=== PATIENT | female | born 1995 | race Caucasian/White ===

== ENCOUNTER → 2018-08-09 13:42 | Outpatient (CLI) | payer OTHER, SELFPAY ==
--- NOTE | 2018-08-09 13:55 | CT_ITS ---
CT angio head INDICATION: ITS.REASON: SYNCOPY, HEADACHE, NAUSEA FOR A WEEK ORDERING PHYSICIAN: Anup Alexis MD PATIENT AGE: 22 years COMPARISON: None TECHNIQUE: Axial images obtained with sagittal and coronal reformats. All CT scans at the facility use one or more dose reduction, viz: automated exposure control, ma/kV adjustment per patient size (including targeted exams where dose is matched to indication, i.e. head), or iterative reconstruction technique. IV contrast was used and sagittal and coronal reformats were evaluated along with axial images FINDINGS: There is excellent vascular opacification. The basilar artery and s[place] of [place] are well opacified and appear normal. All the vascular anatomy appears normal. There is no evidence of aneurysm or AV malformation or other arterial abnormality. The venous anatomy appears normal as well. IMPRESSION: Grossly normal CT angiogram of the brain Noncontrast CT scan of brain: Prior to the contrast study a noncontrast study was performed. The base of skull appears normal. The ventricular system is normal. There is no ischemic infarct or bleed and there are no extra-axial fluid collections. The bony calvarium appears intact. Impression: Negative noncontrast CT scan of brain.
[2018-08-09 15:58] LABS: Basophils % 0.3 % (0.1-2.0); Eosinophils # 0.1 K/mm3 (0.0-0.4); Eosinophils % 1.2 % (0.1-12.0); Hematocrit 40.8 % (37.0-47.0); Lymphocytes # 2.2 K/mm3 (0.7-4.5); Mean Corpuscular HGB Conc 34.2 g/dL (31.8-35.4); Mean Corpuscular Hemoglobin 30.1 pg (27.0-31.2); Mean Corpuscular Volume 87.9 fl (81-99); Mean Platelet Volume 7.4 fl (7.4-10.4); Monocytes # 0.3 K/mm3 (0.1-1.0); Monocytes % 4.4 % (1.7-9.3); Neutrophils # 3.5 K/mm3 (1.8-7.8); Neutrophils % 58.1 % (37.0-80.0); Platelet Count 311 K/mm3 (142-424); Red Blood Count 4.64 M/mm3 (4.20-5.40); Red Cell Distribution Width 12.4 % (11.5-17.5)
[2018-08-09 16:03] LABS: Monoscreen (Rapid) Negative (Negative)
[2018-08-09 16:15] LABS: Alanine Aminotransferase 25 U/L (12-78); Albumin Level 4.5 gm/dL (3.4-5.0); Albumin/Globulin Ratio 1.3 (1.1-1.8); Alkaline Phosphatase 74 U/L (46-116); Anion Gap 14.1 mEq/L (5-15); Aspartate Amino Transferase 19 U/L (15-37); Bilirubin,Direct 0.1 mg/dL (0.0-0.2); Bilirubin,Indirect 0.2 mg/dL (0.0-0.9); Bilirubin,Total 0.3 mg/dL (0.2-1.0); Blood Urea Nitrogen 21 mg/dL (7-18); Calcium 9.9 mg/dL (8.5-10.1); Carbon Dioxide 27 mmol/L (21.0-32.0); Chloride 104 mmol/L (98-107); Cholesterol 237 mg/dL (140-200); Creatinine,Serum 0.75 mg/dL (0.55-1.02); Estimated Glomerular Filt Rate 98 ml/min (>60); Free T4 (Free Thyroxine) 1.08 ng/dl (0.76-1.46); GFR (African American) 118 ML/MIN (>60); Globulin 3.6 gm/dl (1.3-3.2); Glucose 84 mg/dL (74-106); HDL Cholesterol 59 mg/dL (29-89); LDL Cholesterol 160 mg/dL (0-130); Potassium 5.1 mmoL/L (3.5-5.1); Sodium 140 mmol/L (136-145); Thyroid Stimulating Hormone 1.47 uIU/ml (0.358-3.740); Total Protein,Serum 8.1 gm/dL (6.4-8.2); Triglycerides 88 mg/dL (30-200); VLDL Cholesterol 18 mg/dL (0-40)
[2018-08-09 17:33] LABS: Erythrocyte Sedimentation Rate 6 mm/hr (0-20)
[2018-08-10 12:54] LABS: Epstein-Barr Virus Early Ag Ab <9.0 U/mL (0.0-8.9)
== END ==
PROVIDERS: PCP Emergency Medicine; Visit Provider Internal Medicine
DX: R55 Syncope and collapse (principal); R51 Headache; R11.0 Nausea
CPT/HCPCS: 70496; 80053; 80061; 80076; 84439; 84443; 85025; 85651; 86318; 86663; Q9967

== ENCOUNTER → 2018-08-17 16:28 | Outpatient (CLI) | payer OTHER, SELFPAY ==
--- NOTE | 2018-08-17 16:33 | MR_ITS ---
MR head/brain wo con HISTORY: Persistent severe headache ITS.REASON: headache ORDERING PHYSICIAN: Joelle Gillette MD PATIENT AGE: 22 years Comparison: None TECHNIQUE: Standard multiplanar multiecho sequences are performed without contrast. FINDINGS: No midline shift, mass effect, intracranial hemorrhage, or hydrocephalus is evident. No evidence of acute infarction. There is normal mcadams-white matter differentiation. There are some asymmetry in the due to anterior gland having a slightly lobular contour along the posterior aspect on the right. This may be related to partial volume averaging artifact from the sella. The pituitary stalk does not appear deviated. No mastoid effusion or sinus air-fluid level. The cerebellopontine angle, cerebellum, and brainstem have an unremarkable appearance. There is some mild mucosal thickening of the ethmoid sinuses. Previous CT angiogram of 08/09/2018 was compared to this exam. While reviewing that study, there was noted to be prominent and asymmetric venous prominence in the right base of the skull and posterior neck at the craniocervical junction as well as intense enhancement of the right paraspinal and intrathecal region at the C1-C2 level. This leads one to suspect the possibility of an arteriovenous malformation or an arteriovenous fistula on the right. IMPRESSION: 1. Essentially negative MRI of the brain. 2. Abnormal and asymmetric venous prominence in the right posterior neck at the cranial cervical junction as described above consistent with either an arteriovenous malformation or arteriovenous fistula in the in the right posterior neck/base of skull region. A CT angiogram of the neck may provide further information. This should be performed without contrast. Catheter angiography may eventually be needed to confirm this finding.
[2018-08-19 08:39] LABS: Vitamin B12 653 pg/mL (232-1245)
== END ==
PROVIDERS: PCP Emergency Medicine; Visit Provider Specialist
DX: R51 Headache (principal)
CPT/HCPCS: 36415; 70551; 82607

== ENCOUNTER → 2018-10-12 13:11 | Outpatient (CLI) | payer OTHER, SELFPAY ==
--- NOTE | 2018-10-12 13:12 | CA_ITS ---
PROCEDURE: 2-D M-mode and color Doppler study INDICATIONS FOR THE TEST: Chest pain COPD Heart Murmur Tobacco Smoking Palpitations Fatigue Syncope Edema Hypertension Diabetes Mellitus Rheumatic Fever SOB BRADLEY Obesity Hyperlipidemia Family History HD Additional History HEADACHE PATIENT INFORMATION HEIGHT: 60 WEIGHT:106 GENDER: Female B/P:131/64 2-D/M-MODE INTERPRETATION: 2-D MEASUREMENTS OBSERVED VALUES IN CMS Right Ventricular Dimension (RVDd) 2.2 Interventricular Septum (Thickness)(IVsd) 0.7 Left Ventricular Internal Dimensions(LVIDd) 4.6 Left Ventricular Posterior Wall (Thickness)(LVPWd) 0.3 Aortic Root 2.3 Aortic Cusp Separation 1.8 Left Atrial Dimensions (LAD) 2.6 2D 1. Left atrium is normal size, left ventricle is normal size, there is no concentric left ventricular hypertrophy, visually estimated ejection fraction of 55% with no regional wall motion abnormality. 2. The right atrium and the ventricular normal size and contractility. 3. The aortic, mitral and tricuspid valvular grossly normal. 4. The pulmonic valve is poorly visualized. 5. No significant pericardial effusion noted. DOPPLER INTERROGATION: Doppler interrogation of the aortic, mitral and tricuspid valvular presence of trace mitral and tricuspid regurgitation noted of no hemodynamic significance, diastolic parameters are within normal range. CONCLUSION: 1. Normal left ventricular size, preserved left ventricular systolic function, visually estimated ejection fraction of 55% with no regional wall motion abnormality, diastolic parameters are within normal range. 2. Trace mitral and tricuspid regurgitation. 3. No significant pericardial effusion noted.
--- NOTE | 2018-10-12 13:22 | MR_ITS ---
MR angio neck wo con CLINICAL INDICATION: ITS.REASON: HEADACHES, abnormal CT angiogram ORDERING PHYSICIAN: Lou Zaman PATIENT AGE: 23 years Comparison: 08/09/2018 TECHNIQUE: [id number] 3-D slab images obtained with 3-D reformats. FINDINGS: The extracranial carotid arteries have an unremarkable appearance. There is no evidence of stenosis, occlusion, or arteriovenous malformation. No evidence of carotid cavernous fistula. 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 The left vertebral artery is dominant. IMPRESSION: Negative MRA of the carotid arteries
--- NOTE | 2018-10-12 13:23 | MR_ITS ---
MR head wo con CLINICAL INDICATION: ITS.REASON: HEADACHES ORDERING PHYSICIAN: Lou Zaman PATIENT AGE: 23 years Comparison: 08/09/2018 TECHNIQUE: 3-D [id number] slab images obtained without contrast with 3-D reformats FINDINGS: No evidence of aneurysm, arteriovenous malformation, major intracranial occlusive process. 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 The vertebrobasilar system has an otherwise unremarkable appearance. Single shot MRV is unremarkable. IMPRESSION: Negative MRA of the brain
== END ==
PROVIDERS: PCP Emergency Medicine; Visit Provider Nurse Practitioner Family
DX: K63.2 Fistula of intestine (principal); R51 Headache
CPT/HCPCS: 70544; 70547; 93306

== ENCOUNTER → 2020-01-25 15:29 | Outpatient (CLI) | payer OTHER, SELFPAY ==
[2020-01-27 12:20] LABS: Covid-19 Nasal PCR Sendout Lex NOT DETECTED
== END ==
PROVIDERS: PCP Family Medicine; Visit Provider Internal Medicine
DX: Z03.818 Encounter for observation for suspected exposure to other biological agents ruled out (principal); R50.9 Fever, unspecified
CPT/HCPCS: U0004

== ENCOUNTER → 2020-07-06 10:24 | Outpatient (CLI) | payer OTHER, SELFPAY | PROVIDERS: PCP Family Medicine; Visit Provider Internal Medicine | DX: Z03.818 Encounter for observation for suspected exposure to other biological agents ruled out (principal) | CPT/HCPCS: U0003 ==

== ENCOUNTER → 2020-08-25 11:19 | Outpatient (CLI) | payer OTHER, SELFPAY | PROVIDERS: PCP Family Medicine; Visit Provider Internal Medicine | DX: Z20.822 Contact with and (suspected) exposure to COVID-19 (principal) | CPT/HCPCS: U0003 ==

== ENCOUNTER → 2021-05-30 14:13 | Outpatient (CLI) | payer OTHER, SELFPAY ==
--- NOTE | 2021-05-30 14:26 | US_ITS ---
PROCEDURE: US BREAST LT COMPLETE CLINICAL INDICATION: Palpable abnormality at 9 o'clock with tenderness COMPARISON: No exams were available for comparison FINDINGS: Ultrasound is performed of the left breast. General survey is performed with special attention to the area concern at 9 o'clock region. Echo dense fibroglandular tissue is present. No cystic or solid nodule is identified. There is a small left axillary node at 1.9 by 1 cm. IMPRESSION: Unremarkable ultrasound the left breast. No cystic or solid nodules evident. Mammogram was deferred on today's visit as ultrasound was negative and there was not a specific palpable abnormality. If there is indeed a discrete palpable nodule then a mammogram could be performed. Dictated by: Pablo Caballero MD 05/30/2021 15:04 Pablo Caballero MD in [facility] 05/30/2021 15:04
== END ==
PROVIDERS: PCP Family Medicine; Visit Provider Internal Medicine
DX: N91.2 Amenorrhea, unspecified; N92.6 Irregular menstruation, unspecified; E28.2 Polycystic ovarian syndrome; N63.20 Unspecified lump in the left breast, unspecified quadrant
CPT/HCPCS: 76641

== ENCOUNTER 2021-09-22 09:39 | Emergency (ER) | payer OTHER, SELFPAY ==
[2021-09-22 09:40] VITALS: BP 116/68; PULSE 97; RESP 16; TEMP 37.1; O2SAT 98; BMI 19.5
--- NOTE | 2021-09-22 09:49 | CT_ITS ---
PROCEDURE INFORMATION: Exam: CT Abdomen And Pelvis With Contrast Exam date and time: 09/22/2021 9:49 AM Age: 26 years old Clinical indication: Abdominal pain; Generalized; Additional info: Pain, vomitting TECHNIQUE: Imaging protocol: Computed tomography of the abdomen and pelvis with contrast. Radiation optimization: All CT scans at this facility use at least one of these dose optimization techniques: automated exposure control; mA and/or kV adjustment per patient size (includes targeted exams where dose is matched to clinical indication); or iterative reconstruction. Contrast material: ISOVUE; Contrast volume: 75 ml; Contrast route: IV; COMPARISON: No relevant prior studies available. FINDINGS: Liver: Mild focal fatty infiltration of the liver along the falciform ligament. Gallbladder and bile ducts: Normal. No calcified stones. No ductal dilation. Pancreas: Normal. No ductal dilation. Spleen: Normal. No splenomegaly. Adrenal glands: Normal. No mass. Kidneys and ureters: Normal. No hydronephrosis. Stomach and bowel: Unremarkable. No obstruction. No mucosal thickening. Appendix: The appendix is incompletely visualized, but the visualized portions are unremarkable. No evidence of acute appendicitis. Intraperitoneal space: Trace nonspecific free pelvic fluid, which is most often considered physiologic in this age group. Vasculature: Unremarkable. No abdominal aortic aneurysm. Lymph nodes: Unremarkable. No enlarged lymph nodes. Urinary bladder: Unremarkable as visualized. Reproductive: Unremarkable as visualized. Bones/joints: Unremarkable. No acute fracture. Soft tissues: Unremarkable. IMPRESSION: No evidence of an acute intra-abdominal process. Otherwise, as above.
[2021-09-22 10:14] LABS: Basophils # 0.1 K/mm3 (0-0.2); Basophils % 2.3 % (0.1-2.0); Eosinophils # 0.1 K/mm3 (0.0-0.4); Eosinophils % 2.4 % (0.1-12.0); Hematocrit 53.1 % (37.0-47.0); Hemoglobin 17.3 g/dL (12.2-16.2); Lymphocytes # 0.8 K/mm3 (0.7-4.5); Lymphocytes % 16.9 % (10-50); Mean Corpuscular HGB Conc 32.6 g/dL (31.8-35.4); Mean Corpuscular Volume 91.9 fl (81-99); Mean Platelet Volume 9.5 fl (7.4-10.4); Monocytes # 0.3 K/mm3 (0.1-1.0); Monocytes % 7.4 % (1.7-9.3); Neutrophils # 3.2 K/mm3 (1.8-7.8); Neutrophils % 71.1 % (37.0-80.0); Platelet Count 188 K/mm3 (142-424); Red Blood Count 5.78 M/mm3 (4.20-5.40); Red Cell Distribution Width 12.9 % (11.5-17.5); White Blood Count 4.5 K/mm3 (4.8-10.8)
--- NOTE | 2021-09-22 10:22 | [facility].EDABDPAI ---
ED Disposition Clinical Impression: Gastroenteritis, PUD (peptic ulcer disease) Disposition: Home, Self-Care Condition on Discharge: Good Instructions: DI for Peptic Ulcer Prescriptions: Famotidine [Pepcid 20mg Tablet] 20 mg PO DAILY #30 tab Transmission Status: Pending to [facility] #[id number] Ondansetron [Zofran 4mg ODT] 4 mg PO BIDP PRN #10 tab PRN Reason: Nausea Transmission Status: Pending to [facility] #[id number] Referrals: Annabel Avelar [Primary Care Provider] - - Critical Care Critical Care Time: No Attestation: On 09/22/21, the high probability of a clinically significant, sudden or life threatening deterioration of the following system(s) required my full and direct attention, intervention and personal management. The time I documented below is in addition to time spent performing reported procedures but includes the following listed in this critical care notation. Medical Decision Making - Medical Records Medical records reviewed: Yes: I reviewed the patient's medical records. - [place] Inquiry Pt receiving controlled substance: No Vital Signs: 09/22/21 09:40 Temperature 98.8 F Temperature Source Oral Pulse Rate [Left Radial] 97 H Respiratory Rate 16 Blood Pressure [Right Arm] 116/68 Blood Pressure Mean [Right Arm] 84 Blood Pressure Source [Right Arm] Automatic Cuff Blood Pressure Position [Right Arm] Sitting 02 Sat by Pulse Oximetry 98 Oxygen Delivery Method Room Air - Lab Data Lab Results 09/22/21 10:00: WBC 4.5 L, RBC 5.78 H, Hgb 17.3 H, Hct 53.1 H, MCV 91.9, MCH 30.0, MCHC 32.6, RDW 12.9, Plt Count 188, MPV 9.5, Neut % (Auto) 71.1, Lymph % (Auto) 16.9, [place] % (Auto) 7.4, Eos % (Auto) 2.4, Baso % (Auto) 2.3 H, Neut # (Auto) 3.2, Lymph # (Auto) 0.8, [place] # (Auto) 0.3, Eos # (Auto) 0.1, Baso # (Auto) 0.1 09/22/21 10:00: Sodium 139, Potassium 4.5, Chloride 107, Carbon Dioxide 20 L, Anion Gap 16.5 H, BUN 12, Creatinine 0.60, Estimated Creat Clear 103, Estimated GFR 122, Est GFR ( Amer) 147, Glucose 98, Calcium 9.6, Total Bilirubin 0.7, AST 48 H, ALT 38, Alkaline Phosphatase 92, Total Protein 8.8 H, Albumin 4.9, Globulin 3.9 H, Albumin/Globulin Ratio 1.3, Lipase 75 09/22/21 10:00: Serum HCG, Qual Negative 09/22/21 11:59: Urine Color Straw, Urine Appearance Clear, Urine pH 5.5, Ur Specific [place] 1.010, Urine Protein Negative, Urine Glucose (UA) Negative, Urine Ketones Trace, Urine Blood Negative, Urine Nitrate Negative, Urine Bilirubin Negative, Urine Urobilinogen 0.2, Ur Leukocyte Esterase Negative Result diagrams: 09/22/21 10:00 09/22/21 10:00 Orders (Tests/Meds): ED MEDICATIONS Generic Name Dose Route Start Last Admin Trade Name Freq PRN Reason Stop Dose Admin Sodium Chloride 8 ml 09/22/21 09:49 Sodium Chloride 0.9% 10ml Vial IV 10/22/21 09:48 NEEDED PRN dilute pepcid Discontinued Medications Generic Name Dose Route Start Last Admin Trade Name Freq PRN Reason Stop Dose Admin Famotidine 20 mg 09/22/21 09:49 09/22/21 10:52 Famotidine 20mg/2ml Vial IV 09/22/21 09:50 20 mg ONCE ONE Administration Sodium Chloride 1,000 mls @ 999 mls/hr 09/22/21 10:00 09/22/21 10:17 Sod Chlor 0.9% 1000ml Bag IV 09/22/21 11:00 999 mls/hr .[id number] XUAN Administration Iopamidol 75 ml 09/22/21 11:05 09/22/21 11:06 Iopamidol-370 (76%);100ml Bottle IV 09/22/21 11:06 75 ml ONCE ONE Administration Ketorolac Tromethamine 30 mg 09/22/21 10:15 09/22/21 10:16 Ketorolac 30mg/Ml Vial IV 09/22/21 10:16 30 mg ONCE ONE Administration Ondansetron HCl 4 mg 09/22/21 10:15 09/22/21 10:16 Ondansetron 4mg/2ml Vial IV 09/22/21 10:16 4 mg ONCE ONE Administration Promethazine HCl 25 mg 09/22/21 09:49 09/22/21 10:32 Promethazine Hcl 25mg/Ml 1ml Vial IV 09/22/21 09:50 Not Given ONCE ONE Promethazine HCl 25 mg 09/22/21 12:05 Promethazine Hcl 25mg/Ml 1ml Vial IV 09/22/21 12:06 ONCE ONE Sodium
[2021-09-22 10:23] LABS: Alanine Aminotransferase 38 U/L (12-78); Albumin Level 4.9 g/dl (3.5-5.0); Albumin/Globulin Ratio 1.3 (1.1-1.8); Alkaline Phosphatase 92 U/L (38-126); Anion Gap 16.5 mEq/L (5-15); Aspartate Amino Transferase 48 U/L (14-36); Bilirubin,Total 0.7 mg/dl (0.2-1.3); Blood Urea Nitrogen 12 mg/dl (7-17); Calcium 9.6 mg/dl (8.4-10.2); Carbon Dioxide 20 mmol/L (22.0-30.0); Chloride 107 mmol/L (98-107); Creatinine Clearance Estimated 103 mL/min (50-200); Estimated Glomerular Filt Rate 122 ml/min (>60); GFR (African American) 147 ML/MIN (>60); Globulin 3.9 g/dL (1.3-3.2); Glucose 98 mg/dl (74-100); Lipase 75 U/L (23-300); Potassium 4.5 mmoL/L (3.5-5.1); Sodium 139 mmol/L (136-145); Total Protein,Serum 8.8 g/dl (6.3-8.2)
[2021-09-22 10:33] LABS: HCG Qualitative, Serum Negative (Negative)
[2021-09-22 11:00] VITALS: BP 108/68; PULSE 88; O2SAT 100
[2021-09-22 11:30] VITALS: BP 106/67; PULSE 88; O2SAT 100
[2021-09-22 12:04] VITALS: BP 110/71; PULSE 75; O2SAT 98
[2021-09-22 12:06] LABS: Microscopic, Urine URINE MICROSCOPIC (MICROSCOPIC)
[2021-09-22 12:07] LABS: Appearance,Urine CLEAR (Clear); Bilirubin,Urine Negative (Negative); Blood, Urine Negative (Negative); Color,Urine STRAW (Yellow); Glucose,Urine (UA) Negative (Negative); Ketones,Urine TRACE (Negative); Leukocyte Esterase,Urine Negative (Negative); Nitrate,Urine Negative (Negative); PH,Urine 5.5 (5.0-8.5); Protein,Urine Negative (Negative); Urobilinogen,Urine 0.2 EU/dl (0.2)
[2021-09-22 12:31] LABS: Bacteria,Urine 1+ /lpf; Mucus,Urine Trace /lpf; RBC,Urine Occasional #/hpf (0-3); WBC,Urine Occasional #/hpf (0-3)
[2021-09-22 12:37] VITALS: BP 112/70; PULSE 74; RESP 17; TEMP 37.1; O2SAT 100
== END 2021-09-22 12:38 | disposition home or self-care (01) ==
PROVIDERS: Emergency Provider Emergency Medicine; PCP Family Medicine
DX: R11.2 Nausea with vomiting, unspecified (principal); R19.7 Diarrhea, unspecified; R10.13 Epigastric pain; K27.9 Peptic ulcer, site unspecified, unspecified as acute or chronic, without hemorrhage or perforation; G43.909 Migraine, unspecified, not intractable, without status migrainosus; Z79.899 Other long term (current) drug therapy
CPT/HCPCS: 74177; 80053; 81001; 83690; 84703; 85025; 96361; 96365; 96374; 96375; 99285; J2405; Q9967